=== PATIENT | male | born 1955 | race Caucasian/White ===

== ENCOUNTER 2018-06-13 09:30 | Emergency (ER) | payer OTHER ==
[~2018-06-13] VITALS: Ht 170.2 cm; Wt 96.0 kg
[2018-06-13 10:43] LABS: BASOPHILS % 0.3 % (0.0-2.0); EOSINOPHILS % 0.9 % (0.0-5.0); HEMATOCRIT. 42.8 % (42.0-52.0); HEMOGLOBIN. 14.6 g/dL (14.0-18.0); LYMPHOCYTES % 9.7 % (20.0-50.0); MEAN CORPUSCULAR HEMOGLOBIN 30.1 pg (28.0-32.0); MEAN CORPUSCULAR VOLUME 88.1 fL (80.0-94.0); MEAN PLATELET VOLUME 9.3 fl (7.4-10.4); MONOCYTES % 5.2 % (2.0-8.0); NEUTROPHILS % 83.9 % (40.0-76.0); PLATELET 171 x1000/uL (130-400); RED BLOOD CELL COUNT 4.86 mill/uL (4.7-6.1); RED CELL DISTRIBUTION WIDTH 13.3 % (11.6-14.6)
[2018-06-13 10:49] LABS: CHLORIDE 104 mEq/L (98-107)
[2018-06-13 10:50] LABS: INR 1.1; PROTHROMBIN TIME 11.3 sec (9.1-11.1)
[2018-06-13 13:53] VITALS: BP 138/71
== END 2018-06-13 13:59 | disposition home or self-care (01) ==
LOC: ER 09:30
DX: R42 Dizziness and giddiness (principal)
CPT/HCPCS: 36415; 71045; 80053; 83880; 84484; 85025; 85610; 93005; 99285

== ENCOUNTER 2019-05-10 22:20 | Emergency (ER) | payer OTHER ==
[~2019-05-10] VITALS: Ht 170.2 cm; Wt 87.0 kg
[2019-05-11] MEDS ORDERED: KETOROLAC 60MG/2ML VIAL IM STA (03:10)
[2019-05-11] MEDS ORDERED: BACITRACIN ZINC OINT UDPKT TOP ONE (03:15)
[2019-05-11] MEDS ORDERED: LIDOCAINE 1%/EPI 1:100,000 10 ML VIAL IJ ONE (03:15)
[2019-05-11] MEDS ORDERED: BACITRACIN 15GM TUBE TOP NR (03:45)
[2019-05-11] MEDS ORDERED: LIDOCAINE HCL/EPINEPHRINE 1%-EPI 1:100,000 20 ML VIAL INFIL ONE (03:45)
[2019-05-11 07:06] VITALS: BP 155/94
== END 2019-05-11 07:12 | disposition home or self-care (01) ==
LOC: ER 22:20
DX: L02.211 Cutaneous abscess of abdominal wall (principal)
CPT/HCPCS: 82962; 96372; 99283; J1885; J3490

== ENCOUNTER 2019-09-14 16:50 | Inpatient (IN) | payer OTHER ==
[~2019-09-14] VITALS: Ht 172.7 cm; Wt 83.0 kg
[2019-09-14 17:29] LABS: HEMATOCRIT. 41.1 % (42.0-52.0); HEMOGLOBIN. 14.2 g/dL (14.0-18.0); MEAN CORPUSCULAR HEMOGLOBIN 30.6 pg (28.0-32.0); MEAN CORPUSCULAR VOLUME 88.6 fL (80.0-94.0); MEAN PLATELET VOLUME 9.7 fl (7.4-10.4); PLATELET 169 x1000/uL (130-400); RED BLOOD CELL COUNT 4.64 mill/uL (4.7-6.1)
[2019-09-14 17:34] LABS: CHLORIDE 107 mEq/L (98-107)
[2019-09-14 17:38] LABS: ETHANOL BLOOD < 10 mg/dL
[2019-09-14 17:52] LABS: PLATELET ESTIMATE NORMAL
[2019-09-14 22:24] VITALS: BP 164/79
[2019-09-15 04:00] VITALS: BP 147/60
[2019-09-15 06:18] LABS: BASOPHILS % 0.2 % (0.0-2.0); EOSINOPHILS % 0.5 % (0.0-5.0); HEMATOCRIT. 39.2 % (42.0-52.0); HEMOGLOBIN. 13.5 g/dL (14.0-18.0); LYMPHOCYTES % 17.3 % (20.0-50.0); MEAN CORPUSCULAR HEMOGLOBIN 30.5 pg (28.0-32.0); MEAN CORPUSCULAR VOLUME 88.3 fL (80.0-94.0); MEAN PLATELET VOLUME 9.9 fl (7.4-10.4); MONOCYTES % 7.5 % (2.0-8.0); NEUTROPHILS % 74.5 % (40.0-76.0); PLATELET 165 x1000/uL (130-400); RED BLOOD CELL COUNT 4.43 mill/uL (4.7-6.1); RED CELL DISTRIBUTION WIDTH 12.7 % (11.6-14.6)
[2019-09-15 06:38] LABS: CHLORIDE 108 mEq/L (98-107)
[2019-09-15 06:43] LABS: LDL CHOLESTEROL 97 mg/dL (5-100)
[2019-09-15 06:46] LABS: HDL CHOLESTEROL 48 mg/dL (40-59)
[2019-09-15 08:00] VITALS: BP 184/83
[2019-09-15 08:34] LABS: CLARITY URINE CLOUDY (CLEAR); COLOR URINE YELLOW (YELLOW); KETONES URINE NEGATIVE (NEGATIVE); LEUKOCYTE ESTERASE URINE NEGATIVE (NEGATIVE); NITRITE URINE NEGATIVE (NEGATIVE); OCCULT BLOOD URINE NEGATIVE (NEGATIVE); PH URINE 5.5 (4.5-8.0); PROTEIN URINE TRACE (NEGATIVE); SPECIFIC GRAVITY URINE 1.033 (1.005-1.030); UROBILINOGEN URINE 0.2 E.U./dL (0.2-1.0)
[2019-09-15 09:15] LABS: *AMPHETAMINES SCREEN URINE NEGATIVE (NEGATIVE); *BARBITURATES SCREEN URINE NEGATIVE (NEGATIVE); *BENZODIAZEPINES SCREEN URINE NEGATIVE (NEGATIVE); *COCAINE SCREEN URINE NEGATIVE (NEGATIVE); METHADONE URINE SCREEN NEGATIVE (NEGATIVE); OPIATES URINE SCREEN NEGATIVE (NEGATIVE)
[2019-09-15 09:16] LABS: CANNABINOID URINE SCREEN NEGATIVE (NEGATIVE); PHENCYCLIDINE URINE SCREEN NEGATIVE (NEGATIVE)
[2019-09-15] MEDS: ASPIRIN 325MG TABLET PO SCH ×2 (09:42→09:44)
[2019-09-15 10:11] LABS: T4 FREE 0.97 ng/dL (0.76-1.46)
[2019-09-15] MEDS ORDERED: GADOBENATE DIMEGLUMINE 529 MG/ML 10ML IV ONE (10:28)
[2019-09-15] MEDS ORDERED: POTASSIUM CHLORIDE 20MEQ TABLET SR PO NR (10:30)
[2019-09-15 10:46] LABS: VITAMIN B12 SERUM >2000 pg/mL pg/mL (211-911)
[2019-09-15 12:00] VITALS: BP 167/85
[2019-09-15] MEDS: CLONIDINE 0.1MG TABLET PO PRN (12:22)
[2019-09-15] MEDS: ENOXAPARIN 40MG/0.4ML SYR SUBCUT SCH (12:24)
[2019-09-15] MEDS: LOSARTAN POTASSIUM 50 MG TABLET PO SCH (15:21)
[2019-09-15 16:00] VITALS: BP 148/74
[2019-09-15 20:00] VITALS: BP 159/80
[2019-09-15] MEDS: ATORVASTATIN CALCIUM 40MG TABLET PO SCH (20:38)
[2019-09-15] MEDS: AMLODIPINE 5MG TABLET PO SCH (20:38)
[2019-09-16] VITALS: BP 150/79
[2019-09-16 04:00] VITALS: BP 152/80
[2019-09-16 07:13] LABS: CHLORIDE 109 mEq/L (98-107)
[2019-09-16 07:41] LABS: BASOPHILS % 0.4 % (0.0-2.0); EOSINOPHILS % 1.2 % (0.0-5.0); HEMATOCRIT. 40.4 % (42.0-52.0); HEMOGLOBIN. 13.8 g/dL (14.0-18.0); LYMPHOCYTES % 23.8 % (20.0-50.0); MEAN CORPUSCULAR HEMOGLOBIN 30.6 pg (28.0-32.0); MEAN CORPUSCULAR VOLUME 89.2 fL (80.0-94.0); MEAN PLATELET VOLUME 9.9 fl (7.4-10.4); MONOCYTES % 6.8 % (2.0-8.0); NEUTROPHILS % 67.8 % (40.0-76.0); PLATELET 155 x1000/uL (130-400); RED BLOOD CELL COUNT 4.53 mill/uL (4.7-6.1); RED CELL DISTRIBUTION WIDTH 12.9 % (11.6-14.6)
[2019-09-16 08:00] VITALS: BP 154/79
[2019-09-16] MEDS: AMLODIPINE 5MG TABLET PO SCH ×2 (09:16→21:03)
[2019-09-16] MEDS: ENOXAPARIN 40MG/0.4ML SYR SUBCUT SCH (09:16)
[2019-09-16] MEDS: LOSARTAN POTASSIUM 50 MG TABLET PO SCH (09:16)
[2019-09-16 12:00] VITALS: BP 150/77
[2019-09-16] MEDS ORDERED: POTASSIUM CHLORIDE 20MEQ TABLET SR PO NR (15:00)
[2019-09-16 16:00] VITALS: BP 130/80
[2019-09-16 20:00] VITALS: BP 166/91
[2019-09-16] MEDS: ATORVASTATIN CALCIUM 40MG TABLET PO SCH (21:04)
[2019-09-16] MEDS: CLONIDINE 0.1MG TABLET PO PRN (21:07)
[2019-09-16] MEDS ORDERED: IOHEXOL-350 100 ML BOTTLE ONE (21:51)
[2019-09-17] VITALS: BP 148/88
[2019-09-17 04:10] VITALS: BP 150/80
[2019-09-17 06:40] LABS: CHLORIDE 109 mEq/L (98-107)
[2019-09-17 08:00] VITALS: BP 143/84
[2019-09-17] MEDS: LOSARTAN POTASSIUM 50 MG TABLET PO SCH (08:47)
[2019-09-17] MEDS: AMLODIPINE 5MG TABLET PO SCH (08:48)
[2019-09-17] MEDS: ENOXAPARIN 40MG/0.4ML SYR SUBCUT SCH (08:50)
[2019-09-17] MEDS ORDERED: CLOPIDOGREL 75MG TABLET PO SCH (09:00)
[2019-09-17 12:00] VITALS: BP 147/85
[2019-09-17 16:00] VITALS: BP 136/89
[2019-09-17] MEDS ORDERED: AMLO5TAB88 MT (16:26)
[2019-09-17] MEDS ORDERED: CLOP75TA4 MT (16:26)
[2019-09-17] MEDS ORDERED: LIP40 MT (16:26)
[2019-09-17] MEDS ORDERED: LOSA50TA41 MT (16:26)
[2019-09-17] MEDS ORDERED: CARV6.2548 MT ×2 (16:26→17:24)
[2019-09-17 17:09] VITALS: BP 136/89
[2019-09-17] MEDS ORDERED: LIP40 PO (17:24)
[2019-09-17] MEDS ORDERED: LOSA50TA3 PO (17:24)
[2019-09-17] MEDS ORDERED: AMLO5TAB88 PO (17:24)
[2019-09-17] MEDS ORDERED: CLOP75TA15 PO (17:24)
== END 2019-09-17 18:15 | disposition home health service (06) | DRG 65 ==
LOC: ER 17:08 → 7WST 20:10 → EDBEDREQ 20:23 → EDBEDREQTM 20:23 → ENRESERV 21:22
PROVIDERS: ADMIT Internal Medicine; ATTEND Internal Medicine
DX: I63.9 Cerebral infarction, unspecified (principal); G81.91 Hemiplegia, unspecified affecting right dominant side; D64.9 Anemia, unspecified; I10 Essential (primary) hypertension; I65.1 Occlusion and stenosis of basilar artery; R13.10 Dysphagia, unspecified; E78.00 Pure hypercholesterolemia, unspecified; I65.21 Occlusion and stenosis of right carotid artery; Z79.899 Other long term (current) drug therapy
CPT/HCPCS: 36415; 70496; 70498; 70544; 70553; 71045; 80048; 80061; 80305; 80320; 81003; 82607; 82746; 83036; 83519; 83880; 84439; 84443; 84481; 84484; 92523; 92610; 93005; 93306; 93880; 97112; 97116; 97162; 97166; 99285; A9577; J1650; Q9967; G0480